=== PATIENT | female | born 1965 | race Caucasian/White ===

== ENCOUNTER 2016-11-06 13:00 | Inpatient (IN) | payer OTHER ==
[2016-11-06 11:32] VITALS: BMI 21.4
[2016-11-13] MEDS ORDERED: BACITRACIN 50,000 UNIT, POLYMYXIN B 500,000 UNIT in SODIUM CHLORIDE 0.9% IRRIGATIO 1,00... IRRIGATION ONE (05:00)
[2016-11-13] MEDS ORDERED: VANCOMYCIN 1,000 MG in SODIUM CHLORIDE 0.9% 250 ML IVPB ONE (05:00)
[2016-11-13] MEDS ORDERED: CLINDAMYCIN 600 MG in DEXTROSE 5% IN WATER 50 ML IVPB ONE ×2 (05:00)
[2016-11-13] MEDS ORDERED: ONDANSETRON 4 MG/2 ML VIAL IVP ONE (05:22)
[2016-11-13] MEDS ORDERED: LACTATED RINGERS 1,000 ML IV SCH (05:22)
[2016-11-13] MEDS ORDERED: HYDROmorphone 1 MG/ML 1 ML SYRINGE IVP PRN ×2 (05:22→13:51)
[2016-11-13] MEDS ORDERED: LIDOCAINE 1% 20 ML VIAL (10MG/ML) FOR IV START INTRADERMA PRN (05:22)
[2016-11-13 11:18] LABS: Glucose,Whole Blood 83 mg/dL (75-99)
[2016-11-13] MEDS ORDERED: MIDAZOLAM 2 MG/2 ML VIAL IV ONE (12:05)
[2016-11-13] MEDS ORDERED: PROPOFOL 10 MG/ML 20 ML VIAL IV ONE (12:35)
[2016-11-13] MEDS ORDERED: ONDANSETRON 4 MG/2 ML VIAL ONE (12:35)
[2016-11-13] MEDS ORDERED: LIDOCAINE 1% INJ 10MG/ML (20 ML MDV) ONE (12:35)
[2016-11-13] MEDS ORDERED: diphenhydrAMINE 50 MG/ML 1 ML VIAL ONE (12:35)
[2016-11-13] MEDS ORDERED: ROCURONIUM BROMIDE 10 MG/ML 10 ML VIAL IV ONE (12:35)
[2016-11-13] MEDS ORDERED: SUCCINYLCHOLINE CHLORIDE 100 MG/5 ML SYR IV ONE (12:35)
[2016-11-13] MEDS ORDERED: MIDAZOLAM 2 MG/2 ML VIAL ONE (12:35)
[2016-11-13] MEDS ORDERED: fentaNYL (PF) 50 MCG/ML 2 ML AMP ONE (12:35)
[2016-11-13] MEDS ORDERED: LIDOCAINE 0.5%-EPI 1:200,000 50 ML VIAL SQ ONE ×2 (13:05)
[2016-11-13] MEDS ORDERED: GELATIN SPONGE,ABSORB (LARGE) 1 EACH SPONGE TOPICAL ONE (13:09)
[2016-11-13] MEDS ORDERED: THROMBIN (BOVINE) 5,000 UNIT VIAL TOPICAL ONE (13:10)
[2016-11-13] MEDS ORDERED: BUPIVACAINE (PF) 0.25% 30 ML VIAL SQ ONE (13:10)
[2016-11-13] MEDS ORDERED: methylPREDNISolone ACETATE 40 MG/ML 1 ML VIAL MISCELLANE ONE (13:27)
[2016-11-13] MEDS ORDERED: LACTATED RINGERS 1,000 ML IV ONE (13:29)
--- NOTE | 2016-11-13 13:29 | FL ---
Fluoroscopy HISTORY: Lumbar laminectomy 4 seconds fluoroscopy time supplied to the referring clinician. 1 intraoperative C-arm image documen ts the procedure. See dictated report from orthopedic surgery.
--- NOTE | 2016-11-13 13:30 | XR ---
Limited lumbar spine HISTORY: L5-S1 laminectomy Intraoperative C-arm image documents the procedure
--- NOTE | 2016-11-13 13:50 | P.OP ---
Date of Procedure: 11/13/16 Preoperative Diagnosis: Herniated nucleus pulposus L5-S1, foraminal stenosis L5-S1, degenerative disc disease, lower extremity radiculopathy Postoperative Diagnosis: Same Anesthesia: GETA Pathology: none sent Condition: stable Disposition: PACU Description of Procedure: BRIEF OPERATIVE NOTE Preoperative Diagnosis: Herniated nucleus pulposis L5-S1, degenerative disc disease L5-S1, foraminal stenosis L4 5 and S1, lower extremity radiculopathy Postoperative Diagnosis: Same Procedure: Laminectomy and decompression with partial facetectomy and foraminotomies L5-S1 Discectomy for decompression L5-S1 Surgeon: Dr. John Cattle Sticker: Frederic Cherry is present throughout the entire the case persistence during positioning, dissection, exposure, visualization, and all crucial elements of the case as well as closure. Anesthesia: General anesthesia Estimated blood loss: Approximately 20 mL Complications: None apparent Components implanted: None Disposition: To recovery room in good stable condition. OPERATIVE INDICATIONS The patient has been having issues in their lower back and lower extremities. She is found to have disc herniation with foraminal stenosis at L5-S1 which correlated with her low back and lower extremity symptoms. The patient has been through conservative treatment. She is not having any substantial benefit despite aggressive conservative treatment. We discussed various treatment options including surgery, and the patient wishes to proceed with surgery We discussed the risk, patient's alternatives and benefits of surgery including but not limited to, risk of bleeding risk of infection, risk of need for further surgery, risk of decreased, loss of motion, loss of function, nerve damage, paralysis, heart attack, blindness and . OPERATIVE SUMMARY After discussing all the risks, patient alternatives and benefits at length, the patient elected to proceed with surgical intervention, signed informed consent, and presented for their procedure. The patient was seen and examined in the preoperative holding area and the surgical site was marked. The patient was given antibiotics and brought to the operating room. The patient was sedated and intubated by anesthesia in standard fashion. The patient was positioned on to the operating room table in a prone position on the appropriate frame which was well-padded and well molded. We were careful to pad any bony prominences and pressure points. We were careful to maintain the patient's cervical spine and good neutral alignment and position throughout. The patient was prepped and draped in a normal standard fashion. An appropriate timeout and keystone protocol performed. We were able to proceed with the surgery. Fluoroscopy was utilized to establish the appropriate level. The local wound area was infiltrated with local anesthetic. An incision was made at the midline longitudinally over the appropriate levels at L5-S1. the patient has a tattoo at her lower back and we discussed the fact that the incision would involve her tattoo at her lower back or to her surgery.. Dissection was taken down subcutaneously to the level of the fascia which was split midline. Dissection was taken over the lamina. Intraoperative fluoroscopy was taken which showed a marker at the appropriate level at L5-S1 . With the appropriate level positively confirmed, we were able to proceed with laminectomy. The wound was copiously irrigated and suctioned dry as had been done periodically throughout the case. I performed a laminectomy with a combination of curettes and a high-speed bur and Kerrison rongeurs. A small medial facetectomy was performed again further access. A partial foraminotomy was also performed. Portions of the ligamentum flavum were taken down to expose the dura and traversing nerve root. I was able to mobilize the traversing nerve root and gain access to the disc space. Note was made of obvious compression from the disc. Protecting the soft tissue structures, a small annulotomy was established. I was able to perform discectomy and remove any extruded disc fragments and any loose fragments from within the disc itself. There is some significant disc desiccation noted. I tried to preserve the disc annulus that appeared stable. There were no further extruded fragments noted. There is no evidence of dural tear or leak. Good hemostasis maintained. The wound was copiously irrigated and suctioned dry. Good decompression and discectomy was noted. We were able to proceed with closure. The fascia was closed for a watertight closure. The subcuticular tissue was closed with absorbable suture. The wound was cleaned and dried and dressed with the appropriate dressing. The drapes were broken down. The patient was gently rolled back onto their hospital bed being careful to maintain their cervical spine and good neutral alignment and position. They were woken up by anesthesia, extubated, and brought to the recovery room in good stable condition. The patient will be admitted to the hospital for observation and for appropriate postoperative care, medical management and monitoring. We will continue to follow them closely about the postoperative course.
[2016-11-13] MEDS ORDERED: HYDROcodone/APAP 5-325MG 1 EACH TAB PO PRN ×3 (13:51→13:54)
[2016-11-13] MEDS ORDERED: ONDANSETRON 4 MG/2 ML VIAL IVP PRN (13:51)
[2016-11-13] MEDS ORDERED: IBUPROFEN 600 MG TAB PO PRN (13:51)
[2016-11-13] MEDS ORDERED: traMADol 50 MG TAB PO PRN (13:54)
[2016-11-13 14:04] VITALS: RESP 16
[2016-11-13] MEDS ORDERED: MEPERIDINE 50 MG/ML SYRINGE IVP ONE (14:20)
[2016-11-13 15:51] VITALS: BP 101/61; PULSE 63; TEMP 97.5
[2016-11-13] MEDS ORDERED: CLINDAMYCIN 600 MG in DEXTROSE 5% IN WATER 50 ML IVPB SCH ×2 (16:00)
[2016-11-13] MEDS ORDERED: KETOROLAC 30 MG/ML 1 ML VIAL IVP SCH (18:00)
== END 2016-11-13 16:30 | disposition home or self-care (01) | DRG 520 ==
LOC: 2ORMAIN 11-13 09:33 → 5MS5E 11-13 13:46
PROVIDERS: ADMIT Orthopaedic Surgery Orthopaedic Surgery of the Spine; ATTEND Orthopaedic Surgery Orthopaedic Surgery of the Spine
PROC: 0SB40ZZ Excision of Lumbosacral Disc, Open Approach (ICD-10-PCS; principal; 2016-11-13 13:00)
DX: M51.17 Intervertebral disc disorders with radiculopathy, lumbosacral region (principal); E78.5 Hyperlipidemia, unspecified; M48.06 Spinal stenosis, lumbar region; Z79.899 Other long term (current) drug therapy; Z88.1 Allergy status to other antibiotic agents; Z88.2 Allergy status to sulfonamides; Z72.0 Tobacco use
CPT/HCPCS: 72020; 81025; 86850; 86900; 86901

== ENCOUNTER → 2016-11-07 | Outpatient (CLI) | payer OTHER ==
[2016-11-07 15:08] LABS: EKG EKG PERFORMED
--- NOTE | 2016-11-07 15:28 | XR ---
EXAMINATION TYPE: XR chest 2V DATE OF EXAM: 11/07/2016 3:15 PM COMPARISON: Prior chest x-ray 12 July 2015 HISTORY: Preop TECHNIQUE: Frontal and lateral views of the chest are obtained. FINDINGS: There is a spinal curvature as on prior exam. No interval change is evident. IMPRESSION: No acute cardiopulmonary process. Thoracic scoliosis
[2016-11-07 15:39] LABS: Amorphous Sediment,Urine Rare /hpf; Appearance,Urine Clear (Clear); Basophils # (A) 0.1 k/uL (0-0.2); Basophils % (A) 1 %; Bilirubin,Urine Negative (Negative); CH 31.5; Eosinophils # (A) 0.2 k/uL (0-0.7); Eosinophils % (A) 2 %; Glucose,Urine (UA) Negative (Negative); HCT 43.4 % (34.0-46.0); HDW 2.31; HGB 14.3 gm/dL (11.4-16.0); Ketones,Urine Negative (Negative); Leukocyte Esterase,Urine Negative (Negative); Luc # (Auto) 0.17; Luc % (Auto) 2; Lymphocytes # (A) 2.6 k/uL (1.0-4.8); Lymphocytes % (A) 33 %; MCH 31.4 pg (25.0-35.0); MCHC 32.8 g/dL (31.0-37.0); MCV 95.6 fL (80.0-100.0); Mean Platelet Volume 7.2; Monocytes # (A) 0.4 k/uL (0-1.0); Monocytes % (A) 5 %; Mucus,Urine Rare /hpf; Neutrophils # (A) 4.5 k/uL (1.3-7.7); Neutrophils % (A) 57 %; Nitrite,Urine Negative (Negative); PH, Urine 5.5 (5.0-8.0); Particle Count 1799; Protein,Urine Negative (Negative); RBC 4.54 m/uL (3.80-5.40); RBC,Urine 3 /hpf (0-5); Specific Gravity,Urine 1.009 (1.001-1.035); Squamous Epithelial Cell,Urine 1 /hpf (0-4); UA Billing (MACRO vs. MICRO) MICRO; Urobilinogen,Urine <2.0 mg/dL (<2.0); WBC 7.9 k/uL (3.8-10.6); WBC (Perox) 7.96; WBC,Urine 1 /hpf (0-5)
[2016-11-07 15:48] LABS: Partial Thromboplastin Time 26.8 sec (22.0-30.0); Prothrombin Time 10.5 sec (9.0-12.0)
[2016-11-07 15:52] LABS: Anion Gap 10 mmol/L; Blood Urea Nitrogen 9 mg/dL (7-17); Calcium 9.3 mg/dL (8.4-10.2); Carbon Dioxide 25 mmol/L (22-30); Chloride 104 mmol/L (98-107); Glucose 99 mg/dL (74-99); Non-African American GFR(MDRD) >60 (>60 ml/min/1.73 sqM); Sodium 139 mmol/L (137-145)
== END ==
LOC: LABPAT 14:23
PROVIDERS: ATTEND Orthopaedic Surgery Orthopaedic Surgery of the Spine
DX: Z01.818 Encounter for other preprocedural examination (principal); Z01.810 Encounter for preprocedural cardiovascular examination; Z01.812 Encounter for preprocedural laboratory examination
CPT/HCPCS: 71020; 80048; 81001; 85025; 85610; 85730; 87070; 93005

== ENCOUNTER → 2017-09-12 | Outpatient (CLI) | payer OTHER ==
--- NOTE | 2017-09-12 10:38 | WWHP ---
[facility] - HISTORY AND PHYSICAL DATE OF DICTATION: 09/12/2017 CHIEF COMPLAINT: The patient is here for her routine gynecologic exam and mammogram. HPI: This is a 52-year-old, G5, P1-0-4-1 with an LMP of 09/26/2014. The patient is without gynecologic complaints and denies any postmenopausal bleeding. PAST MEDICAL HISTORY: Seasonal allergies, arthritis, chronic back problems and herniated disc of the lower back. MEDICATIONS: 1. Vilonia 5/325 q. day p.r.n. 2. Vitamin D 20,000 units q. month. 3. Neurontin 500 mg daily. 4. Robaxin 1 t.i.d. ALLERGIES: To ERYTHROMYCIN, TETRACYCLINE, CLINDAMYCIN, CEFTIN, SULFA, RHINOCORT, and DOXYCYCLINE. All these caused rashes. PAST SURGICAL HISTORY: Back surgery in 10/2016, colonoscopy in 2015, and she has had several prior to this. Also tubal ligation in 2012 and D and C in 1996. 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 SOCIAL HISTORY: She admits to smoking half to 1 pack of cigarettes per day and denies alcohol and drug use. She is and has been with her partner since approximately 2012, but does not live with him. 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 FAMILY HISTORY: Sister had breast and colon cancer in her 40s. Mother had colon cancer. Maternal aunt and cousin had breast cancer. REVIEW OF SYSTEMS: She has gained 4 pounds over the last year. She denies respiratory, cardiac or GI problems. PHYSICAL EXAM: Blood pressure 107/71, height 5 feet 6-1/2 inches, weight 128 pounds, temperature 98.3, pulse 73, BMI 21. This is a well-developed, well-nourished, white female, who is alert and oriented x3, in no acute distress. HEENT is within normal limits. NECK: Supple without mass or thyromegaly. CHEST AND LUNGS: Clear to auscultation. HEART: Regular rate and rhythm. Breasts are without mass or discharge. Axillary exam is negative for adenopathy. BACK: Negative for CVA tenderness. ABDOMEN: Soft, nontender, without palpable masses. PELVIC EXAM: External genitalia reveals mild atrophy without lesions. Cervix and vagina reveals mild atrophy without lesions. There is no evidence of prolapse. The uterus is mid position, nongravid size and nontender. There are no palpable adnexal masses or tenderness. Rectovaginal exam is negative for mass or tenderness and is negative for occult blood. EXTREMITIES: Nontender. IMPRESSION: A 52-year-old menopausal female with normal gynecologic exam. PLAN: 1. Pap smear was deferred since she had a normal one less than 2 years ago. 2. Self-breast examination was discussed. 3. Screening mammogram will be done today. 4. Osteoporosis prevention was discussed. 5. She will return in 1 year. MMODL / IJN: [id number] /
--- NOTE | 2017-09-13 13:35 | MM ---
Reason for exam: screening (asymptomatic). Last mammogram was performed 1 year and 4 months ago. History: Patient is postmenopausal and had first child at age 32. Family history of breast cancer in sister at age 42, breast cancer in cousin, and breast cancer in mother. Physical Findings: A clinical breast exam by your physician is recommended on an annual basis and results should be correlated with mammographic findings. MG Screening Mammo w CAD Bilateral CC and MLO view(s) were taken. Prior study comparison: May 17, 2016, bilateral MG screening mammo w CAD. January 23, 2012, mammogram, performed at [facility]. The breast tissue is heterogeneously dense. This may lower the sensitivity of mammography. No significant changes when compared with prior studies. ASSESSMENT: Benign, BI-RAD 2 RECOMMENDATION: Routine screening mammogram of both breasts in 1 year.
== END | disposition home or self-care (01) ==
LOC: WWCWWP 09:18
PROVIDERS: ATTEND Obstetrics & Gynecology
DX: Z12.31 Encounter for screening mammogram for malignant neoplasm of breast (principal)
CPT/HCPCS: 77067

== ENCOUNTER → 2017-10-10 | Outpatient (CLI) | payer OTHER ==
--- NOTE | 2017-10-11 08:09 | US ---
EXAMINATION TYPE: US pelvic complete DATE OF EXAM: 10/10/2017 COMPARISON: NONE CLINICAL HISTORY: N95.0 MENORRHAGIA. No cycle for 3 yrs and started bleeding 3 days ago, light flow a nd getting better today, tubal ligation TECHNIQUE: TA. Transabdominal sonographic images of the pelvis were acquired. Date of LMP: September 2014 EXAM MEASUREMENTS: Uterus: 6.1 x 3.3 x 2.2 cm Endometrial Stripe: 0.4 cm Right Ovary: 1.3 x 1.1 x 0.8 cm Left Ovary: 1.4 x 1.0 x 1.1 cm 1. Uterus: Anteverted wnl 2. Endometrium: wnl 3. Right Ovary: wnl 4. Left Ovary: wnl 5. Bilateral Adnexa: wnl 6. Posterior cul-de-sac: wnl IMPRESSION: 1. Normal pelvic ultrasound
== END | disposition home or self-care (01) ==
LOC: RADUSWWP 15:26
PROVIDERS: ATTEND Obstetrics & Gynecology
DX: N95.0 Postmenopausal bleeding (principal)
CPT/HCPCS: 76856

== ENCOUNTER → 2018-07-08 | Outpatient (CLI) | payer OTHER ==
[2018-07-08 17:11] LABS: Vitamin D 25 Hydroxy 30.2 ng/mL (30.0-100.0)
[2018-07-08 18:15] LABS: Albumin 4.3 g/dL (3.80-4.90); Albumin/Globulin Ratio 2.39 (1.20-2.10); Anion Gap 3.7 mmol/L (4.00-12.00); Carbon Dioxide 27.3 mmol/L (21.6-31.8); Globulin 1.8 g/dL (2.1-3.7); LDL Cholesterol,Calculated 185.6 mg/dL (0.0-131.0); Potassium 4.3 mmol/L (3.5-5.5); Total Bilirubin 0.5 mg/dL (0.2-1.2); Total Protein 6.1 g/dL (6.2-8.2); VLDL Calculation 23.4 mg/dL (5.00-40.00)
[2018-07-08 19:43] LABS: Hemoglobin A1C 5.5 % (4.0-6.0)
== END | disposition home or self-care (01) ==
LOC: LABWHC1 06:45
PROVIDERS: ATTEND Nurse Practitioner Adult Health
DX: Z00.00 Encounter for general adult medical examination without abnormal findings (principal); R53.83 Other fatigue; M54.5 Low back pain
CPT/HCPCS: 36415; 80053; 80061; 82306; 82607; 83036; 84443

== ENCOUNTER → 2018-10-08 | Outpatient (CLI) | payer OTHER ==
[2018-10-08 15:08] VITALS: BP 114/69; PULSE 78; RESP 16; TEMP 97.9; BMI 21.6
--- NOTE | 2018-10-08 15:58 | P.HPOB ---
History of Present Illness H&P Date: 10/08/18 Chief Complaint: The patient is here for her routine gynecologic exam and ma mmogram. This is a 53-year-old with an LMP of 2014. Last year she had a episode of brief light postmenopausal spotting in September 2017. She had an endometrial thickness of 4 mm by pelvic ultrasound on 10/10/2017. She denies any spotting or bleeding since then. She is without gynecologic complaints. Review of Systems She is getting 6 pounds over the last year. She denies respiratory or cardiac problems. G.I.: she has had some G.I. bloating after eating since she started Lipitor. Past Medical History Past Medical History: Hyperlipidemia, Osteoarthritis (OA), Skin Disorder Additional Past Medical History / Comment(s): SCOLIOSIS, DEGENERATIVE ARTHRITIS WITH HERNIATED DISC L-5,S-1, hx migraines, low BP, scatches on back, Laser eye surgery, sterid spinal injections within last 3 months History of Any Multi-Drug Resistant Organisms: None Reported Past Surgical History: Ear Surgery, Tubal Ligation Additional Past Surgical History / Comment(s): D&C, left ear surgery, sinus surgery, back surgery. Colonoscopy 2016(multiple done) Past Anesthesia/Blood Transfusion Reactions: Previous Problems w/ Anesthesia, Postoperative Nausea & Vomiting (PONV) Additional Past Anesthesia/Blood Transfusion Reaction / Comment(s): low blood pressure Past Psychological History: No Psychological Hx Reported Smoking Status: Current every day smoker (1 pack per day) Past Alcohol Use History: None Reported Additional Past Alcohol Use History / Comment(s): SMOKES approx 1 PPD . SMOKING SINCE 10 YRS OLD. SMOKING FOR 41 YEARS Past Drug Use History: None Reported Additional History: She is and has been with her boyfriend since 2012, but does not live with him. 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 - Past Family History Mother Family Medical History: Cancer Additional Family Medical History / Comment(s): COLON CANCER. Maternal aunt and cousin had breast cancer. Sister(s) Family Medical History: Cancer Additional Family Medical History / Comment(s): breast and colon Medications and Allergies Home Medications Medication Instructions Recorded Confirmed Type Hydrocodone/Acetaminophen [[place] 1 tab PO TID PRN 11/06/16 11/13/16 History 5-325] Methocarbamol [Robaxin] 500 mg PO PRN 11/13/16 11/13/16 History Atorvastatin [Lipitor] 10 mg PO HS 10/08/18 10/08/18 History Cyclobenzaprine [Flexeril] 10 mg PO HS 10/08/18 10/08/18 History Gabapentin [Neurontin] 300 mg PO 10/08/18 History Allergies Allergy/AdvReac Type Severity Reaction Status Date / Time budesonide Allergy HIVES Verified 10/08/18 15:12 [From Rhinocort Aqua] cefuroxime axetil Allergy HIVES Verified 10/08/18 15:12 [From Ceftin] doxycycline Allergy HIVES Verified 10/08/18 15:12 erythromycin base Allergy HIVES Verified 10/08/18 15:12 [From E-Mycin] latex Allergy BURNING Verified 10/08/18 15:12 FEELING in mucous membranes nickel Allergy Unknown Verified 10/08/18 15:12 [place] Complexes Allergy Unknown Verified 10/08/18 15:12 Sulfa (Sulfonamide Allergy HIVES Verified 10/08/18 15:12 Antibiotics) tetracycline Allergy HIVES Verified 10/08/18 15:12 titanium Allergy Unknown Verified 10/08/18 15:12 Exam Vital Signs Temp Pulse Resp BP Pulse Ox 10/08/18 15:00 97.9 F 78 16 114/69 98 Intake and Output 10/08/18 10/08/18 10/08/18 06:59 14:59 22:59 Other: Weight 60.781 kg Height 5'6", weight 134 pounds, BMI 21.6. This is a well-developed well-nourished white female who is alert and oriented times 3 in no acute distress. HEENT: Within normal limits. NECK: Supple without mass or thyromegaly. CHEST AND LUNGS: Clear to auscultation. HEART: Regular rate and rhythm. BREASTS: Are without mass or discharge. AXILLARY EXAM: Negative for adenopathy. BACK: Negative for CVA tenderness. ABDOMEN: Soft, nontender, without palpable masses. PELVIC EXAM: Normal external genitalia with mild atrophy. Cervix and vagina appear normal mild atrophy. There is no unusual discharge. There is no evidence of prolapse. The uterus is midposition, nongravid size and nontender. There are no palpable adnexal masses or tenderness. RECTAL EXAM: rectovaginal exam is negative for mass or tenderness and is negative for occult blood. EXTREMITIES: Nontender. IMPRESSION: 1. 53-year-old menopausal female with normal gynecologic exam. 2. Family history of breast cancer in her sister and colon cancer in her sister and mother. PLAN: 1. Pap smear was performed. 2. Self breast awareness was discussed with the patient. 3. Screening mammogram will be done today. 4. Osteoporosis prevention was discussed. I have stressed the importance of adequate calcium, vitamin D and regular exercise. Recommended amounts of calcium and vitamin D were also discussed. 5. We have had a long discussion regarding cancer genetics testing. I have offered her a referral for counseling and possible testing since she is considered at higher risk for breast and colon cancer. She is declining this at this time but will call if she changes her mind. 6. She will call if she has any vaginal bleeding. 7.She was advised to return in one year for her annual well woman exam.
--- NOTE | 2018-10-09 11:52 | MM ---
Reason for exam: screening (asymptomatic). Last mammogram was performed 1 year and 1 month ago. History: Patient is postmenopausal and had first child at age 32. Family history of breast cancer in sister at age 42, breast cancer in cousin, and breast cancer in mother. Took hormonal contraceptives for 11 years beginning at age 20. Physical Findings: A clinical breast exam by your physician is recommended on an annual basis and results should be correlated with mammographic findings. MG Screening Mammo w CAD Bilateral CC and MLO view(s) were taken. Prior study comparison: September 12, 2017, bilateral MG screening mammo w CAD. May 17, 2016, bilateral MG screening mammo w CAD. The breast tissue is heterogeneously dense. This may lower the sensitivity of mammography. No suspicious abnormality. No significant changes when compared with prior studies. ASSESSMENT: Negative, BI-RAD 1 RECOMMENDATION: Routine screening mammogram of both breasts in 1 year.
== END | disposition home or self-care (01) ==
LOC: WWCWWP 14:37
PROVIDERS: ATTEND Obstetrics & Gynecology
DX: Z12.31 Encounter for screening mammogram for malignant neoplasm of breast (principal)
CPT/HCPCS: 77067

== ENCOUNTER → 2023-01-31 | Outpatient (CLI) | payer OTHER ==
--- NOTE | 2023-01-31 13:38 | XR ---
EXAMINATION TYPE: XR foot complete RT DATE OF EXAM: 01/31/2023 COMPARISON: NONE HISTORY: Mild hypertrophic arthropathy first MTP. Diffuse osteopenia. TECHNIQUE: Three views are submitted. FINDINGS: The osseous structures are intact. There is no acute fracture or dislocation. Joint spaces are p reserved. Nonspecific sclerosis along the distal margin of the calcaneus. IMPRESSION: 1. No acute fracture or dislocation. If symptoms persist, follow-up exam in 7 to 10 days could be ob tained. 2. Nonspecific sclerosis posterior calcaneus. End point tenderness correlate with bone scan
== END | disposition home or self-care (01) ==
LOC: RADXRYALE 13:04
PROVIDERS: ATTEND Physician Assistant
DX: M19.071 Primary osteoarthritis, right ankle and foot (principal); M85.871 Other specified disorders of bone density and structure, right ankle and foot

== ENCOUNTER → 2023-11-15 | Outpatient (CLI) | payer BC ==
--- NOTE | 2023-11-21 08:33 | MR ---
EXAMINATION TYPE: MR lumbar spine wo con DATE OF EXAM: 11/15/2023 COMPARISON: 06/05/2016 HISTORY: Low back pain that radiates down both legs. CONTRAST: 0 mL intravenous Gadavist. TECHNIQUE: Multiplanar, multisequence images of the lumbar spine were acquired. FINDINGS: Cord terminates at the L1 level. Disc heights are preserved. Disc desiccation is present t hroughout the lumbar spine. Scoliosis is present with the convexity to the left. Vertebral body heigh ts are preserved. Some disc space narrowing is present L5-S1. S1-2: Residual disc remains present. No spinal canal stenosis or neural foraminal stenosis is evident . L5-S1: Mild diffuse disc bulges anterior thecal sac contact. No AP spinal canal stenosis is present. There is moderate left foraminal stenosis. L4-L5: No significant central or paracentral disc bulge or disc herniation. No spinal canal stenosis . There is a left lateral disc herniation into the foramen. This may have contact with the exiting ne rve root. Correlate for left L5 radicular symptoms. This may be slightly progressive from the 06/05/20 16 comparison. Left L4-5 facet hypertrophy contributes to foraminal narrowing. Ligamentum flavum laxi ty has posterior lateral thecal sac compression bilaterally at this level. L3-L4: No significant disc bulge or disc herniation. Milder left lateral disc bulge may be present. T his appears similar to the 2015 comparison. No definite nerve root contact or foraminal stenosis evid ent No spinal canal stenosis. No foraminal stenosis. Minimal facet hypertrophy may be present. L2-L3: No significant disc bulge or disc herniation. No spinal canal stenosis. No foraminal stenosi s. Some minimal right lateral thecal sac compression from facet hypertrophy is present. L1-L2: No significant disc bulge or disc herniation. No spinal canal stenosis. No foraminal stenosi s. T12-L1: No significant disc bulge or disc herniation. No spinal canal stenosis. No foraminal stenos is. IMPRESSION: 1. Left lateral L4-5 disc bulge with left foraminal stenosis. Correlate with left ovary 5 radicular s ymptoms. This may be mildly progressive from 2016 2. Mild ligamentum flavum laxity is posterior lateral thecal sac compression bilaterally at L4-5. No spinal canal stenosis. 3. There is some moderate left foraminal stenosis L5-S1. 4. Some milder L3-4 left lateral disc bulge may be present in the axial plane without obvious foramin al stenosis. This area appears stable from 2016.
== END | disposition home or self-care (01) ==
LOC: RADMRIMAIN 15:52
PROVIDERS: ATTEND Neurological Surgery
DX: M99.73 Connective tissue and disc stenosis of intervertebral foramina of lumbar region (principal); M51.26 Other intervertebral disc displacement, lumbar region; M54.16 Radiculopathy, lumbar region
CPT/HCPCS: 72148

== ENCOUNTER → 2025-02-05 | Outpatient (CLI) | payer BC ==
--- NOTE | 2025-02-05 15:32 | MM ---
Reason for Exam: Screening (asymptomatic). Last mammogram was performed 6 year(s) and 4 month(s) ago. Patient History: Menarche at age 18. First Full-Term at age 32. Late child-bearing (after 31). Postmenopausal. Patient has history of breast feeding. Hormonal Contraceptives, from age 20 until age 29. Maternal cousin had breast cancer. Maternal cousin (abbie) had breast cancer, age 50. Sister had breast cancer, age 42. Mother had breast cancer. Cousin (abbie) tested for BRCA1 outcome was positive. Risk Values: Yarelis 5 year model risk: 3.7%. NCI Lifetime model risk: 19.0%. Prior Study Comparison: 05/17/2016 Bilateral Screening Mammogram, [facility]. 09/12/2017 Bilateral Screening Mammogram, [facility]. 10/08/2018 Bilateral Screening Mammogram, [facility]. Tissue Density: The breasts are heterogeneously dense, which may obscure small masses. Findings: Analyzed By CAD. There is no suspicious group of microcalcifications or new suspicious mass in either breast. Overall Assessment: Negative, BI-RAD 1 Management: Screening Mammogram of both breasts in 1 year. . Patient should continue monthly self-breast exams. A clinical breast exam by your physician is recommended on an annual basis. This exam should not preclude additional follow-up of suspicious palpable abnormalities. Note on Yarelis scores and lifetime risk: 1. A Yarelis score greater than 3% is considered moderate risk. If this is the case, consider specialist referral to assess eligibility for a risk reducing agent. 2. If overall lifetime risk for the development of breast cancer is 20% or higher, the patient may qualify for future screening with alternating mammogram and breast MRI. [facility], , 02/05/2025 3:29 PM. Electronically signed and approved by: Henry Bee M.D.
== END | disposition home or self-care (01) ==
LOC: RADMAMWWP 15:01
PROVIDERS: ATTEND Family Medicine
DX: Z12.31 Encounter for screening mammogram for malignant neoplasm of breast (principal); R92.333 Mammographic heterogeneous density, bilateral breasts; Z78.0 Asymptomatic menopausal state; Z80.3 Family history of malignant neoplasm of breast; Z92.0 Personal history of contraception
CPT/HCPCS: 77067